=== PATIENT | male | born 1980 | race American Indian/Alaskan Native ===

== ENCOUNTER 2017-04-18 18:58 | Emergency (ER) | payer SELFPAY ==
[2017-04-18] MEDS ORDERED: MOTRIN PO ONE (20:58)
[2017-04-18] MEDS ORDERED: XYLOCAINE 2%/ EPI 1:200,000 INFILTRATI ONE (20:58)
[2017-04-18] MEDS ORDERED: BOOSTRIX IM ONE (20:59)
--- NOTE | 2017-04-18 21:20 | Emergency Department Report ---
- General Chief Complaint: Wound/Laceration Stated Complaint: CUT RIGHT ARM Time Seen by Provider: 04/18/17 21:12 Source: patient Mode of arrival: Ambulatory Limitations: No Limitations - History of Present Illness Initial Comments: This is a 36-year-old male well-nourished with nontoxic or ill in appearance that presents with 2 inch laceration to her right posterior forearm. Patient isn't happened while he was at work today around 2 PM. Patient was moving a box when a sharp corner object cut his right arm. Patient denies any blunt trauma to the arm. Denies numbness, tingling, pain, pus, drainage, able to move extremity, shortness of breath, chest pain, nausea, vomiting, or abdominal pain. Patient denies any head trauma. Patient stated does not know her last tetanus vaccine. Girlfriend's currently present at bedside. Patient denies any drug allergies. Denies past medical history. -: Gradual, This afternoon (2 pm) Extremity Location: Right: Forearm (posterior) 1 - [address]: work Patient Tetanus UTD: No Context: accidental Associated Symptoms: none. denies: pain, loss of feeling/numbness, suspect foreign body present, unable to move injured part, weakness followed by dizziness, nausea/vomiting, fever - Related Data Previous Rx's Medication Instructions Recorded Last Taken Type Cephalexin [Keflex] 500 mg PO Q8HR 7 Days 04/18/17 Unknown Rx HYDROcodone/APAP 7.5-325 [[place] 1 each PO Q8HR PRN #8 tablet 04/18/17 Unknown Rx 7.5/325] ED Review of Systems ROS: Stated complaint: CUT RIGHT ARM Other details as noted in HPI Constitutional: denies: chills, fever Eyes: denies: eye pain, eye discharge, vision change ENT: denies: ear pain, throat pain Respiratory: denies: cough, shortness of breath, wheezing Cardiovascular: denies: chest pain, palpitations Endocrine: no symptoms reported Gastrointestinal: denies: abdominal pain, nausea, diarrhea Genitourinary: denies: urgency, dysuria Musculoskeletal: denies: back pain, joint swelling, arthralgia Skin: denies: rash, lesions Neurological: denies: headache, weakness, paresthesias Psychiatric: denies: anxiety, depression Hematological/Lymphatic: denies: easy bleeding, easy bruising ED Past Medical Hx - Past Medical History Previous Medical History?: No - Surgical History Past Surgical History?: No - Social History Smoking Status: Never Smoker Substance Use Type: None - Medications Home Medications: Home Medications Medication Instructions Recorded Confirmed Last Taken Type Cephalexin [Keflex] 500 mg PO Q8HR 7 Days 04/18/17 Unknown Rx HYDROcodone/APAP 7.5-325 [[place] 1 each PO Q8HR PRN #8 tablet 04/18/17 Unknown Rx 7.5/325] ED Physical Exam - General Limitations: No Limitations General appearance: alert, in no apparent distress - Head Head exam: Present: atraumatic, normocephalic - Eye Eye exam: Present: normal appearance, PERRL, EOMI Pupils: Present: normal accommodation - ENT ENT exam: Present: normal exam, normal orophraynx, mucous membranes moist, TM's normal bilaterally, normal external ear exam - Neck Neck exam: Present: normal inspection, full ROM. Absent: tenderness, meningismus, lymphadenopathy, thyromegaly - Respiratory Respiratory exam: Present: normal lung sounds bilaterally. Absent: respiratory distress, wheezes, rales, rhonchi, stridor, chest wall tenderness, accessory muscle use, decreased breath sounds, prolonged expiratory - Cardiovascular Cardiovascular Exam: Present: regular rate, normal rhythm. Absent: systolic murmur, diastolic murmur, rubs, gallop - GI/Abdominal GI/Abdominal exam: Present: soft, normal bowel sounds. Absent: distended, tenderness, guarding, rebound, rigid - Rectal Rectal exam: Present: deferred - Extremities Exam Extremities exam: Present: normal inspection, full ROM, normal capillary refill. Absent: tenderness, pedal edema, joint swelling, calf tenderness - Expanded Upper Extremity Exam Right General: Present: normal inspection, laceration Shoulder Exam: Present: normal inspection, full ROM. Absent: tenderness, swelling, abrasion, laceration, ecchymosis Upper Arm exam: Present: normal inspection, full ROM. Absent: tenderness, swelling, abrasion, laceration, ecchymosis, deformity Elbow exam: Present: normal inspection, full ROM. Absent: tenderness, swelling , abrasion, laceration, ecchymosis, deformity, crepidus, dislocation, erythema, effusion, pain w/ pronation/supination, tenderness over radial head Forearm Wrist exam: Present: normal inspection, full ROM, laceration (2 inch to posterior forearm). Absent: tenderness, swelling, abrasion, ecchymosis, deformity, crepidus, dislocation, erythema, tenderness over anatomical snuff box , pain with axial thumb loading Hand Wrist exam: Present: normal inspection, full ROM. Absent: tenderness, swelling, abrasion, laceration, ecchymosis, deformity, crepidus, dislocation, erythema, amputation, nail avulsion, subungual hematoma Neuro motor exam: Present: wrist extension intact, thumb opposition intact, thumb IP flexion intact, thumb adduction intact, fingers 2-5 abduction intact Neurosensory exam: Present: 2-point discrimination, radial nerve intact, ulnar nerve intact, median nerve intact Vascular: Present: vascular compromise, normal capillary refill, radial pulse, brachial pulse, ulnar pulse - Back Exam Back exam: Present: normal inspection, full ROM. Absent: tenderness, CVA tenderness (R), CVA tenderness (L), muscle spasm, paraspinal tenderness, vertebral tenderness, rash noted - Neurological Exam Neurological exam: Present: alert, oriented X3, CN II-XII intact, normal gait - Psychiatric Psychiatric exam: Present: normal affect, normal mood - Skin Skin exam: Present: warm, dry, intact, normal color. Absent: rash, cyanosis, diaphoretic, erythema, urticaria, vesicles ED Course Vital Signs 04/18/17 19:15 Temperature 98.2 F Blood Pressure 142/92 - Laceration /Wound Repair Right Arm Wound Location: upper extremity (posterior forearm) Wound Length (cm): 5 Wound's Depth, Shape: linear Wound Explored: clean Irrigated w/ Saline (ccs): 40 Betadine Prep?: Yes Anesthesia: Lidocaine w/ Epi (2% with epi 1:200,000) Volume Anesthetic (ccs): 6 Wound Debrided: minimal Wound Repaired With: sutures Suture Size/Type: 4:0, proline Number of Sutures: 14 Layer Closure?: Yes Deep Layer Suture Size/Type: 3:0 (Vicryl) Number Deep Layer Sutures: 10 Sterile Dressing Applied?: Yes Progress: Under sterile field, I used Betadine to prep the wound area. I used 40 mL to flush out the wound. I injected 6 mL of 2% lidocaine with epi 1:200,000 with 25 -gauge 5/8 needle. I then used 3-0 Vicryl to close linear subcutaneous tissue with a total number of 10 stitches. I then used a 4-0 Prolene to close linear the epidermis. Number stitches 14. A sterile dressing has been applied to the area with tape. Patient did well. No signs of distress. No complications noted. ED Medical Decision Making - Medical Decision Making Ed course: This is a 36-year-old male that presents with 2 in laceration to the right posterior forearm. 1- after my physical exam, patient received Tetanus booster IM, ibuprofen 800 mg in ED. 2- the laceration has been sutured with a 3-0 Vicryl for subcutaneous closure and 4-0 proline for superficial epidermis closure. 3- Patient received [place] at the time of d/c and was instructed not to operate heavy machinery while taking [place] due to sedation. 4- patient was instructed to follow-up in [facility] in 7-10 days for suture removal. 5- Patient was also instructed to f/u with primary care doctor in 3-5 days or return back to emergency room if symptoms of pus, drainage, numbness, tingling, or unable to move the extremity report SINDY. 6- patient's girlfriend is currently present at bedside stated she'll get the patient home. 7- at time time of discharge, the patient does not seem toxic or ill in appearance. No acute signs of distress noted. Patient agrees to discharge treatment plan of care. No further questions noted by the patient. 8- Keflex has been also prescribed to the patient at the time of d/c. Was instructed to finish full course of antibiotics as prescribed. Critical care attestation.: If time is entered above; I have spent that time in minutes in the direct care of this critically ill patient, excluding procedure time. ED Disposition Clinical Impression: Laceration Disposition: DISCHARGED TO HOME OR SELFCARE Is pt being admited?: No Does the pt Need Aspirin: No Condition: Stable Instructions: Suture Care (ED), Laceration (ED) Additional Instructions: Return to [facility] ER for suture removal in 7-10 days. Take for coarse antibiotics as prescribed. Take [place] as prescribed as needed for pain. Do not operate heavy machinery while taking [place] due to sedation. Full up with your primary care doctor in 3-5 days or symptoms such as numbness, tingling, unable to extremity, pus, drainage report back to the ER as soon possible. Prescriptions: Cephalexin [Keflex] 500 mg PO Q8HR 7 Days HYDROcodone/APAP 7.5-325 [[place] 7.5/325] 1 each PO Q8HR PRN #8 tablet PRN Reason: Pain Referrals: [facility] [Outside] - 3-5 Days [facility] [Outside] - 3-5 Days POORNIMA LEWIS JR, MD [Staff Physician] - 3-5 Days Forms: Work/School Release Form(ED)
[2017-04-18 23:20] VITALS: BP 136/82
== END 2017-04-18 23:19 | disposition home or self-care (01) ==
LOC: ED 18:58
DX: S51.811A Laceration without foreign body of right forearm, initial encounter (principal); W26.8XXA Contact with other sharp object(s), not elsewhere classified, initial encounter; Y93.89 Activity, other specified; Y99.0 Civilian activity done for income or pay; Y92.89 Other specified places as the place of occurrence of the external cause
CPT/HCPCS: 90471; 90715